=== PATIENT | female | born 1990 | race Caucasian/White ===

== ENCOUNTER → 2021-01-26 15:59 | Outpatient (CLI) | payer OTHER, SELFPAY ==
[2021-01-26 16:55] LABS: Add Manual Diff / Slide Review NO; Basophils Absolute Auto 0 /uL (0-100); Basophils Percent Auto 0.4 % (0-2); Eosinophils Absolute Auto 100 /uL (0-450); Eosinophils Percent Auto 1.3 % (2-4); Hematocrit 38.5 % (36-46); Hemoglobin 13.1 g/dL (12.0-16.0); Lymphocytes Absolute Auto 1900 /uL (1100-4500); Lymphocytes Percent Auto 17.3 % (25-40); Mean Corpuscular Hemoglobin 29.3 PG (26-34); Mean Corpuscular Volume 86.1 fL (80-100); Monocytes Absolute Auto 600 /uL (0-900); Monocytes Percent Auto 5.5 % (3-14); Neutrophils Absolute Auto 8200 /uL (1500-7000); Neutrophils Percent Auto 75.5 % (50-75); Platelet Count 334 X10^3/uL (150-400); Red Blood Cell Count 4.47 X10^6/uL (4.0-5.2); Red Cell Distribution Width 12.9 % (11.6-14.8); White Blood Cell Count 10.9 X10^3/uL (4.5-11.0)
[2021-01-26 18:02] LABS: Free T4, Direct Thyroxine 1.05 ng/dL (0.78-2.19)
[2021-01-26 18:10] LABS: Appearance Urine UA CLEAR; Bilirubin Urine UA NEGATIVE (NEGATIVE); Color Urine UA YELLOW; Glucose Urine UA NEGATIVE (Negative); Ketones Urine UA NEGATIVE (NEGATIVE); Leukocyte Esterase Urine UA NEGATIVE (NEGATIVE); Nitrite Urine UA NEGATIVE (Negative); Occult Blood Urine UA 2+ (Negative); Protein Urine UA NEGATIVE (Negative); Specific Gravity Urine UA 1.025 (1.000-1.035); Urobilinogen Urine UA 0.2 E.U./dL (0.2)
[2021-01-26 18:16] LABS: Thyroid Stimulating Hormone 2.37 uIU/mL (0.47-4.68)
[2021-01-26 18:20] LABS: Amorphous Sediment Urine 1+; Bacteria Urine Few (2-10); Mucus Urine 1+ (Negative); RBC Urine 5-10/HPF (0-5/HPF); Squamous Epithelial Cell Urine 1-5 /HPF (0-5/HPF); WBC Urine 1-5/HPF (0-5/HPF)
[2021-01-26 18:21] LABS: Culture Indicated Urine Specimen Cultured
[2021-01-26 19:44] LABS: HIV 1 & 2 Ab/Ag 4th Gen Combo NEGATIVE (NEGATIVE); Hep C Virus Ab w/Reflex Quant REACTIVE s/c (NEGATIVE); Hepatitis B Surface Antigen NEGATIVE s/c (NEGATIVE); Rubella Antibody IgG 15.5 IU/mL (>15)
[2021-01-27 08:11] LABS: RPR Screen Non Reactive (Non Reactive); Varicella IgG Antibody 594 index (Immune >165)
== END ==
PROVIDERS: PCP Student in an Organized Health Care Education/Training Program; Referring Provider Specialist; Visit Provider Specialist
DX: Z34.81 Encounter for supervision of other normal pregnancy, first trimester (principal); Z3A.01 Less than 8 weeks gestation of pregnancy
CPT/HCPCS: 36415; 80055; 81003; 81015; 84439; 84443; 86787; 86803; 86850; 86900; 86901; 87086; 87389; 87522

== ENCOUNTER → 2021-04-17 10:50 | Outpatient (CLI) | payer OTHER, SELFPAY ==
--- NOTE | 2021-04-17 10:51 | DI.US.S_ITS ---
PROCEDURE: US OB >= 14 WEEKS FETUS INDICATIONS: ANATOMY OUTSIDE/PRIOR DATING DATA: Last menstrual period (LMP): Unknown. LMP-based estimated date of delivery (DEMETRA): Not applicable. First dating scan (date and location): 01/11/2021. Estimated date of delivery (DEMETRA) from first dating scan: 09/05/2021. TECHNIQUE: Real-time scanning was performed of the fetus, with image documentation and biometric measurements. Endovaginal scanning: No COMPARISON: [facility], , OB >= 14 WEEKS FETUS, 03/27/2021, 12:33. FINDINGS: Examination is limited by body habitus. General: A single living intrauterine gestation is present. Presentation: Variable. Placenta: Placental position is posterior and low lying and not well seen. There is no significant change in possible placenta previa. Amniotic fluid index: 17.3 cm, normal range is 5-24 cm. heart rate: 163 beats per minute. Maternal cervical canal: A cm long. Normal lower limit is 2.5 cm. \ biometrics: Biparietal diameter: 48 mm; 20 weeks 3 days Head circumference: 176 mm; 20 weeks 0 days Abdominal circumference: 158 mm; 20 weeks 6 days Femur length: 39 mm; 22 weeks 3 days Estimated gestational age by initial OB ultrasound: 19 weeks 6 days Composite gestational age from present scan: 21 weeks 0 days Estimated weight and percentile: 422 g, which is at the 99th percentile for gestational age Anatomic survey: Neuro: Ventricles are non-dilated at less than 10 mm. Cisterna magna is normal at 3-11 mm. Cerebellum is normal in size and morphology. Choroid plexus cyst on the right is present measuring 7 mm. Nuchal skin fold: Normal at less than 6 mm between 14-21 weeks gestational age. Face: Nose and lips, facial profile are normal. Spine: No evidence for spina bifida. Heart: 4-chambered heart is present, with normal ventricular outflow tracts. Diaphragm: Diaphragm is intact. Stomach: Left-sided stomach is present. Kidneys: No hydronephrosis. Normal is less than 5 mm in 2nd trimester, less than 7 mm in 3rd trimester. Cord: 3-vessel cord is present. Marginal superior cord insertion is present. Bladder: Normal in size. Extremities: All 4 extremities identified. IMPRESSION: 1. Single living intrauterine gestation. 2. Estimated weight is at the 99th percentile for gestational age. 3. Marginal superior cord insertion. We strive to produce accurate, complete, and clear reports of imaging services. To assist us in improving patient care, this report was composed using standard report templates and voice recognition software. Therefore, it may contain abnormal punctuation, insertions and/or omissions. Occasional wrong-word or sound-alike substitutions may occur. Though we review the report and make efforts to correct it, we do recommend that the report be read carefully in proper context to recognize any text inaccuracies. Dictated by: Darryl Fontenot M.D. on 04/17/2021 at 14:51 Approved by: Darryl Fontenot M.D. on 04/17/2021 at 16:55
== END ==
PROVIDERS: PCP Student in an Organized Health Care Education/Training Program; Referring Provider Specialist; Visit Provider Specialist
DX: Z34.92 Encounter for supervision of normal pregnancy, unspecified, second trimester (principal); Z3A.20 20 weeks gestation of pregnancy
CPT/HCPCS: 76811

== ENCOUNTER → 2021-05-24 14:41 | Outpatient (CLI) | payer OTHER, SELFPAY ==
[2021-05-24 16:00] LABS: Hematocrit 32.4 % (36-46); Hemoglobin 11.1 g/dL (12.0-16.0)
[2021-05-24 18:17] LABS: GTT (PREG) 1 Hour PP 50gm Dose 133 mg/dL (76-139)
== END ==
PROVIDERS: PCP Student in an Organized Health Care Education/Training Program; Referring Provider Specialist; Visit Provider Specialist
DX: Z34.82 Encounter for supervision of other normal pregnancy, second trimester (principal)
CPT/HCPCS: 36415; 82950; 85014; 85018